=== PATIENT | female | born 2000 | race Two or more races ===

== ENCOUNTER 2024-03-29 09:49 | Emergency (ER) | payer MEDICAID, SELFPAY ==
[2024-03-29 09:51] VITALS: BMI 38.0
--- NOTE | 2024-03-29 09:57 | PD.EDNEURO ---
Neuro Symptoms Deficit-RME/HPI General Chief Complaint: General Adult/Misc Complain Stated Complaint: RIGHT SIDE FACIAL NUMBNESS X2 DAYS Time Seen by Provider: 03/29/24 09:53 Arrival date/time: 03/29/24 09:49 RME / HPI RME / HPI Narrative: This section includes all my notes and documentations, including HPI, PE, and ED course. Edwin Son MD HPI: 24-year-old female here with several days of right facial droop and numbness and tingling. No headache or dizziness. No speech or visual impairment. No loss of power in the arms or legs. No fever or chills. No chest pain or shortness of breath. No other complaints. ROS: All negative except as documented in HPI. Physical Exam: General: Alert and oriented. No acute distress. Eyes: Conjunctivae and lids clear. EOMI. PERRL. ENT: No nasal congestion. Pharynx normal. Tympanic membrane normal bilaterally. Neck: Supple. Heart: RRR. Lungs: No respiratory distress. Good air movement. No rhonchi, wheezing, rales. Skin: Warm and dry. Neuro: Alert and oriented X 3. Cranial Nerves II-XII grossly intact. No peripheral motor deficits. Except right facial paralysis, including the forehead muscles. Made clinical diagnosis of Ha's palsy. Recommended conservative treatment. Based on my best medical judgment, made decision no further evaluation or treatment indicated at this time. Patient understands and agrees to the discharge instructions customized and printed, see below. Discharge Instructions from Dr. Son: --After evaluation, there is no stroke.? You have Ha's palsy.? --Ha's palsy is Inflammation of the facial nerves one side which can cause paralysis and numbness/tingling and other symptoms.? --The cause of the nerve inflammation is not known.? Virus infection and stress are possibilities. --Take Prednisone and Valtrex as prescribed.? This can shorten the course. --See a private doctor on?04/02/2024 for recheck Ask to help until you are completely better. --And see manager sustainability to start your care. Based on your LMP 01/17/2024, today's gestational age 10 2/7 weeks. --Seek immediate medical care with speech impairment, loss of power in arms or legs, cramping, vaginal bleeding, or with any concerns.?? Edwin Son MD Related Data Previous Rx's ?Medication ?Instructions ?Recorded dicyclomine 20 mg tablet 20 mg PO Q8HR PRN Abdominal cramps 03/18/19 #10 tabs ondansetron 4 mg disintegrating 4 mg PO Q8H PRN nausea and 01/13/23 tablet vomiting #20 tabs albuterol sulfate 90 mcg/actuation 2 puff inhalation Q6H PRN 04/17/23 aerosol inhaler (Ventolin HFA) shortness of breath or wheezing #8.5 grams prednisone 20 mg tablet 40 mg PO 1XD 5 days #10 tabs 03/29/24 valacyclovir 1 gram tablet 1,000 mg PO BID 5 days #10 tabs 03/29/24 (Valtrex) Allergies Allergy/AdvReac Type Severity Reaction Status Date / Time No Known Drug Allergies Allergy Unknown Verified 04/19/21 22:05 Course Quality Measures none Vital Signs Vital signs: Vital Signs Temperature 98.2 F 03/29/24 10:01 Pulse Rate 86 03/29/24 10:01 Respiratory Rate 18 03/29/24 10:01 Blood Pressure 139/79 H 03/29/24 10:01 Pulse Oximetry (%) 98 03/29/24 10:01 Oxygen Delivery Method Room Air 03/29/24 10:01 Neuro Symptoms / Deficit Patient data External records reviewed:: [facility] previous records Clinical information provided by:: patient Social determinants that could affect healthcare access:: none Patient has the following chronic illnesses:: Asthma How is presenting disease/condition affected by chronic disease/condition?: uneffected by Evaluation data The following diagnostics were reviewed and interpreted by me:: other (specify) (No diagnostic tests ordered) Lab and/or radiology exams considered but not ordered:: None Interpretation Summary: No diagnostic tests ordered Medications / Prescriptions Medications or Prescriptions considered but not ordered:: None Medication administrations:: None Consultations Consultation(s) initiated? (list below): No Diagnosis Neuro Differential Diagnosis: other (Ha's palsy) Most likely diagnosis given after review of the tests above:: Ha's palsy Admission Indicated Admission indicated?: not indicated Explain why admission is indicated or not indicated:: Admission criteria not met Admission Request Was there a request for admission?: No Disposition Plan Disposition Plan: Discharge Discharge Attestation Discharge Attestation: The patient and all family members were given an opportunity to ask questions and understood the discharge instructions. Discharge instructions specifically effects, indications for sooner follow up or return to the emergency department, and the expected course of current diagnosis. Patient condition: Stable Discharge Plan Plan Patient Disposition: HOME (Self Care) Prescriptions/Referrals Prescriptions/Med Rec: New prednisone 20 mg tablet 40 mg PO 1XD 5 Days Qty: 10 0RF Taper: Prednisone Taper 20 mg DAILY for 2 Days and 0 Hour 10 mg DAILY for 2 Days and 0 Hour 5 mg DAILY for 7 Days and 0 Hour valacyclovir [Valtrex] 1 gram tablet 1,000 mg PO BID 5 Days Qty: 10 0RF No Action dicyclomine 20 mg tablet 20 mg PO Q8HR PRN (Reason: Abdominal cramps) Qty: 10 0RF ondansetron 4 mg tablet,disintegrating 4 mg PO Q8H PRN (Reason: nausea and vomiting) Qty: 20 0RF albuterol sulfate [Ventolin HFA] 90 mcg/actuation HFA aerosol inhaler 2 puff inhalation Q6H PRN (Reason: shortness of breath or wheezing) Qty: 8.5 3RF Problem List Clinical Impression: Ha's palsy Patient/Caregiver Discharge Instructions Discharge Activity: activity as tolerated Education Materials: ED Ha's Palsy Additional Instructions: Discharge Instructions from Dr. Son: --After evaluation, there is no stroke.? You have Ha's palsy.? --Ha's palsy is Inflammation of the facial nerves one side which can cause paralysis and numbness/tingling and other symptoms.? --The cause of the nerve inflammation is not known.? Virus infection and stress are possibilities. --Take Prednisone and Valtrex as prescribed.? This can shorten the course. --See a private doctor on?04/02/2024 for recheck Ask to help until you are completely better. --And see manager sustainability to start your care. Based on your LMP 01/17/2024, today's gestational age 10 2/7 weeks. --Seek immediate medical care with speech impairment, loss of power in arms or legs, cramping, vaginal bleeding, or with any concerns.?? Print Language: Divehi Stand Alone Forms: The [facility] Report., Patient Portal Info Letter
[2024-03-29 10:01] VITALS: BP 139/79; PULSE 86; RESP 18; TEMP 36.8; O2SAT 98
== END 2024-03-29 10:14 | disposition home or self-care (01) ==
LOC: SERX 10:20
PROVIDERS: Emergency Provider Emergency Medicine; PCP Nurse Practitioner Family
DX: G51.0 Bell's palsy (principal)
CPT/HCPCS: 99281

== ENCOUNTER → 2024-04-03 | Outpatient (CLI) | payer MEDICAID, SELFPAY ==
--- NOTE | 2024-04-03 12:00 | XR_ITS ---
Examination: Complete OB ultrasound, less than 14 weeks, transabdominal Date and time of exam: April 03, 2024 1201 hours INDICATIONS: Irregular menses Technique: Obstetrical ultrasound images less than 14 weeks performed via transabdominal imaging Findings: A normal shaped single intrauterine gestation is present in the uterus. pole 2 cm corresponds to 8 weeks 4 days gestational age Cardiac motion 182 BPM Ultrasonographic survey of visible and placental structures unremarkable. Amniotic fluid volume appears appropriate for this estimated gestational age. Right ovary 3.2 x 1.5 x 2.0 cm arterial flow Left ovary 5.0 x 2.8 x 4.7 cm arterial flow 35 x 35 mm simple cyst IMPRESSION: Viable intrauterine gestation 8 weeks 4 days.
== END | disposition home or self-care (01) ==
LOC: CDIM 11:48
PROVIDERS: Referring Provider Obstetrics & Gynecology; Visit Provider Obstetrics & Gynecology
DX: Z33.1 Pregnant state, incidental (principal)
CPT/HCPCS: 76801

== ENCOUNTER 2024-06-27 20:10 | Emergency (ER) | payer MEDICAID, SELFPAY ==
[2024-06-27 20:11] VITALS: BMI 42.5
[2024-06-27 21:01] VITALS: BP 121/81; PULSE 112; RESP 20; TEMP 37; O2SAT 99
--- NOTE | 2024-06-27 21:14 | PD.EDNV ---
Nausea/Vomit./Diarrhea-RME/HPI General Chief complaint: General Adult/Misc Complain Stated complaint: WEAK,DIZZY, N/V Arrival date/time: 06/27/24 20:10 24F at approximately 21 weeks and with no significant PMH presents to ED with several days of generalized weakness and 1 day of N/V. Patient denies dysuria and diarrhea. Related Data Previous Rx's ?Medication ?Instructions ?Recorded dicyclomine 20 mg tablet 20 mg PO Q8HR PRN Abdominal cramps 03/18/19 #10 tabs ondansetron 4 mg disintegrating 4 mg PO Q8H PRN nausea and 01/13/23 tablet vomiting #20 tabs albuterol sulfate 90 mcg/actuation 2 puff inhalation Q6H PRN 04/17/23 aerosol inhaler (Ventolin HFA) shortness of breath or wheezing #8.5 grams Allergies Allergy/AdvReac Type Severity Reaction Status Date / Time No Known Drug Allergies Allergy Unknown Verified 06/27/24 20:13 Course Orders Category Date Time Status CBC Stat Lab 06/27/24 21:14 Ordered CMP [Comprehensive Metabolic Panel] Stat Lab 06/27/24 21:14 Ordered Drug Screen,Urine Stat Lab 06/27/24 21:14 Ordered Urinalysis, C/S if Indicated Stat Lab 06/27/24 21:14 Ordered Metoclopramide [Reglan] Med 06/27/24 21:14 Once 10 mg PO X1 ONE Vital Signs Vital signs: Vital Signs Temperature 98.6 F 06/27/24 21:01 Pulse Rate 112 H 06/27/24 21:01 Respiratory Rate 20 06/27/24 21:01 Blood Pressure 121/81 06/27/24 21:01 Pulse Oximetry (%) 99 06/27/24 21:01 Oxygen Delivery Method Room Air 06/27/24 21:01 Nausea/Vomiting/Diarrhea Medications / Prescriptions Medication administrations:: Medication Administration History Metoclopramide HCl (Metoclopramide 5 Mg Tablet) 10 mg PO X1 ONE Stop: 06/27/24 21:15 Discharge Plan Prescriptions/Referrals Prescriptions/Med Rec: No Action dicyclomine 20 mg tablet 20 mg PO Q8HR PRN (Reason: Abdominal cramps) Qty: 10 0RF ondansetron 4 mg tablet,disintegrating 4 mg PO Q8H PRN (Reason: nausea and vomiting) Qty: 20 0RF albuterol sulfate [Ventolin HFA] 90 mcg/actuation HFA aerosol inhaler 2 puff inhalation Q6H PRN (Reason: shortness of breath or wheezing) Qty: 8.5 3RF Patient/Caregiver Discharge Instructions Print Language: Yoruba
--- NOTE | 2024-06-27 21:27 | PD.EDRME ---
Rapid Medical Screening Exam RME Arrival date/time: 06/27/24 20:10 24F at approximately 21 weeks and with no significant PMH presents to ED with several days of generalized weakness and 1 day of N/V. Patient denies dysuria and diarrhea. Chief Complaint: General Adult/Misc Complain Time Seen by Provider: 06/27/24 21:15 Vital signs: Vital Signs Temperature 98.6 F 06/27/24 21:01 Pulse Rate 112 H 06/27/24 21:01 Respiratory Rate 20 06/27/24 21:01 Blood Pressure 121/81 06/27/24 21:01 Pulse Oximetry (%) 99 06/27/24 21:01 Oxygen Delivery Method Room Air 06/27/24 21:01
--- NOTE | 2024-06-27 21:33 | PC.NURSE ---
CALLED PT TO GIVE MED, ALSO FOR LAB DRAW NO ANSWER AT ER LOBBY OR OUTSIDE ER.
--- NOTE | 2024-06-27 21:37 | PC.NURSE ---
PT NO ANSWER AT ER LOBBY OR OUTSIDE ER.
== END 2024-06-27 21:40 | disposition left against medical advice (07) ==
LOC: SERX 21:42
PROVIDERS: Emergency Provider Emergency Medicine
DX: O26.892 Other specified pregnancy related conditions, second trimester (principal); R53.1 Weakness; Z3A.21 21 weeks gestation of pregnancy; Z53.29 Procedure and treatment not carried out because of patient's decision for other reasons
CPT/HCPCS: 80053; 80307; 81001; 85025; 99281

== ENCOUNTER 2024-11-06 19:00 | Observation (INO) | payer MEDICAID, SELFPAY ==
[2024-11-06] VITALS (13 sets, daily range): BP systolic 130–138; BP diastolic 83–96; PULSE 118–130; RESP 16–99; O2SAT 98–100; BMI 42.0
== END 2024-11-06 20:30 | disposition home or self-care (01) ==
PROVIDERS: Admitting Provider Obstetrics & Gynecology; Visit Provider Obstetrics & Gynecology
DX: O26.893 Other specified pregnancy related conditions, third trimester (principal); Z3A.39 39 weeks gestation of pregnancy; R10.2 Pelvic and perineal pain; M54.9 Dorsalgia, unspecified
CPT/HCPCS: 59899

== ENCOUNTER 2024-11-06 22:42 | Inpatient (IN) | payer MEDICAID, SELFPAY ==
[2024-11-06 22:45] VITALS: BP 131/84; PULSE 117; RESP 18; RESP 99; TEMP 36.8; BMI 42.0
[2024-11-06 23:10] VITALS: PULSE 117; O2SAT 98
[2024-11-06 23:15] VITALS: PULSE 122; O2SAT 98
[2024-11-06 23:32] VITALS: BP 131/82; PULSE 121
[2024-11-06 23:44] VITALS: BMI 42.0
[2024-11-06 23:59] VITALS: PULSE 115; O2SAT 98
[2024-11-07] VITALS (58 sets, daily range): BP systolic 120–154; BP diastolic 58–91; PULSE 102–147; RESP 16–18; TEMP 36.6–37.6; O2SAT 95–100
[2024-11-07] MEDS: Ampicillin Inj 2,000 MG in SODIUM CHLORIDE 0.9% (POP) 100 ML 200 MG IV (00:05)
[2024-11-07] MEDS: fentaNYL CIT INJ 50 mCg/ML AMP 2ML 100 MCG IVP (00:06)
[2024-11-07] MEDS: RINGERS LACTATED 1000 ML 1,000 ML 100 ML IV (00:06)
[2024-11-07 00:13] LABS: Basophils # (Auto) 0.0 Thou/mm3 (0.0-0.2); Basophils % (Auto) 0 % (0-2.5); Eosinophils # (Auto) 0.0 Thou/mm3 (0.0-0.5); Eosinophils % (Auto) 0 % (0-10); Hematocrit 38.9 % (36.0-46.0); Hemoglobin 13.5 g/dL (12.0-16.0); Immature Granulocytes Auto 0.07 Thou/mm3 (0.00-0.00); Lymphocytes # (Auto) 1.6 Thou/mm3 (1.0-4.8); Lymphocytes % (Auto) 15 % (10-50); Mean Corpuscular HGB Conc 34.7 g/dl (31.0-37.0); Mean Corpuscular Hemoglobin 26.7 pg (25.0-35.0); Mean Corpuscular Volume 77 fL (80-100); Monocytes # (Auto) 0.6 Thou/mm3 (0.0-0.8); Monocytes % (Auto) 5 % (0-12); Neutrophils # (Auto) 8.4 Thou/mm3 (1.8-7.7); Neutrophils % (Auto) 79 % (37-80); Nucleated Red Blood Cell # 0.00 Thou/mm3 (0.00-0.00); Nucleated Red Blood Cell % 0 /100 WBC (0); Platelet Count 171 Thou/mm3 (140-440); RDW Standard Deviation 42.3 fL (36.4-46.3); Red Blood Count 5.06 Miln/mm3 (4.00-5.20); White Blood Count 10.6 Thou/mm3 (3.6-11.0)
--- NOTE | 2024-11-07 00:25 | XR_ITS ---
Examination: visualization limited TECHNIQUE: Limited transabdominal sonographic images pelvis Date and time: November 07, 2024, 0032 hours INDICATIONS: Patient in active labor, unknown presentation FINDINGS: Viable intrauterine gestation vertex presentation Cardiac motion 126 BPM Estimated weight 3887.5 g Estimated age 40 weeks 0 days IMPRESSION: Viable intrauterine gestation vertex presentation
[2024-11-07 00:49] LABS: Syphilis Nonreactive (Nonreactive)
--- NOTE | 2024-11-07 00:55 | PD.LDHP ---
Documentation for date of: 11/07/24 OB Labor/Induct. HPI History of Present Illness Chief complaint: contractions : 3 Para: 2 Term pregnancies: 1 pregnancies: 1 Living children: 2 History of Abortions: Spontaneous and Elective: 0 History of Vaginal deliveries: 2 History of sections: No History of : No PARI: 11/09/24 Gestational Age (weeks): 39 Gestational Age (days): 5 History of present illness: Patient presents for regular, painful ctx. She was seen earlier in the evening for similar- at that time was 3/-3 and discharged home. No LOF. No vaginal bleeding. Normal movement. No fevers/chills. History of Present Narrative: : term 2017 with PPH related to atony, received blood transfusion. Treated for Hep C during . G2: term uncomplicated 2018 G3: current, sees Dr. Joseph at [facility] (no pre-wade records available to review at time of admission) H&P from admission for 2nd delivery in 2019 by ASHLEE Baig notes that patient has hx of HSV 1 and 2 and was treated with acyclovir from 36wk on in that . Patient endorses today that she wasn't aware of that diagnosis until seeing records and was tested for HSV subsequent to that and tested negative. Endorses never having an HSV outbreak before. Labs Maternal Blood Type: B Pos Labs: Positive: Rubella Titre, Negative: RPR, Hepatitis B, HIV, Chlamydia and Gonorrhea and Unknown: Herpes Type 1, Herpes Type 2, Group Beta Strep and Covid-19 Review of Systems Review of Systems Narrative Review of Systems: Review of Systems Systems Reviewed: All systems reviewed, normal except as documented Constitutional Constitutional: Denies body ache(s), Denies chills, Denies fever(s) and Denies headache(s) ENT Ears, Nose, Mouth, and Throat: Denies headache(s) and Denies vertigo Cardiovascular Cardiovascular: Denies chest pain, Denies palpitations, Denies dyspnea and Denies syncope Respiratory Respiratory: Denies cough, Denies dyspnea Gastrointestinal Gastrointestinal: Denies nausea and Denies vomiting Neurologic Neurologic: Denies convulsions, Denies headache(s), Denies other visual disturbances, Denies syncope and Denies vertigo Past Medical History Family History OTHER FAMILY HX: Mother has Hepatitis C Surgical History SURGICAL: Negative Section Social History SOCIAL: No tobacco/ETOH/illicit drug use Past Medical History Comments PMH COMMENT: Chronic Hepatitis C Hx of blood transfusion for anemia after childbirth Meds Home Medications and Allergies Home Medications ?Medication ?Instructions ?Recorded ?Confirmed ?Type aspirin 81 mg tablet,delayed 81 mg PO QDAY 11/06/24 11/06/24 History release vit no.95-ferrous 1 tab PO QDAY 11/06/24 11/06/24 History fumarate 28 mg-folic acid 800 mcg tablet () Allergies Allergy/AdvReac Type Severity Reaction Status Date / Time No Known Drug Allergies Allergy Unknown Verified 11/06/24 23:05 OB Exam Physical Exam Vital signs: Pulse BP Pulse Ox 129 H 134/82 H 99 11/07/24 00:41 11/07/24 00:41 11/07/24 00:54 Narrative: General: well developed, well nourished, no acute distress, conversant Cardiac: normal heart rate Lungs: breathing without distress Abdomen: soft, gravid, non-tender, no rebound or guarding Extremities: trace edema BLE Detailed Labor and Delivery Exam Dilation (cm): 5 Effacement (%): 90 Cervix position: anterior station: -2 Presentation: Vertex Membranes: intact monitor accelerations: 15x15 monitor decelerations: None snf variability: Moderate (11-25) Contraction frequency (min): q1-2min OB Results Labs 11/06/24 23:49 Labs: Short CBC 11/06/24 Range/Units 23:49 WBC 10.6 (3.6-11.0) Thou/mm3 Hgb 13.5 (12.0-16.0) g/dL Hct 38.9 (36.0-46.0) % Plt Count 171 (140-440) Thou/mm3 OB Assessment & Plan Assessment and Plan (1) Spontaneous onset of labor: Status: Acute Assessment and plan: Jose Raul is a 24yo with SIUP at 39&5wk presenting in active labor. Regular/painful contractions, SCE: /-2. Vitals wnl, benign exam. Reassuring assessment. PMhx/ complicated by: Care with Dr. Lee at [facility] (no PN records available to review at time of admission) Hx of chronic Hepatitis C. Patient notes viral load tested approx 1 month ago and remains undetectable. Hx of PPH after 1st delivery with blood transfusion Previous documentation on the chart for +HSV 1 and 2, but patient states testing after that was negative. Denies hx of outbreak. Plan: -Admit to L&D -Establish IV, routine labs to include CMP for AST/ALT -CEFM -Clear liquid diet -Structures Mechanic/consent re: -GBS status: positive. Ampicillin per protocol. -Due to hx of Hepatitis C, will avoid FSE -Anticipate -Safe to proceed (2) Hx of hepatitis C: Status: Acute (3) History of hemorrhage, currently in third trimester: Status: Acute (4) History of maternal blood transfusion, currently in third trimester: Status: Acute
[2024-11-07] MEDS: MINERAL OIL 30 ML UDC TOP (01:34)
[2024-11-07] MEDS: OXYTOCIN in NS 20 units 20 UNIT/1,000 ML BAG 125 UNIT IV (01:35)
[2024-11-07] MEDS: IBUPROFEN TAB 400 MG TABLET 800 MG PO ×2 (01:35→20:26)
[2024-11-07] MEDS: BENZO/LANO/ALOE (Dermoplast) 60 GM CAN 1 SPRAY TOP (01:35)
--- NOTE | 2024-11-07 01:39 | PD.LDDELS ---
Data (Staley) Data Hx Section: No : 3 Term: 1 : 1 Livin Abortions: Spontaneous & Theraputic: 0 Delivery Data (Staley) Labor Data Initiation of labor: Spontaneous Induction/Augmentation Agent: None ROM date: 11/07/24 ROM time: 01:12 Amniotic membrane rupture type: Spontaneous Amniotic fluid description: Moderate Meconium Delivery Data Onset of labor date: 11/06/24 Onset of labor time: 20:30 Complete dilation date: 11/07/24 Complete dilation time: 01:12 delivery date: 11/07/24 delivery time: 01:17 Placenta delivery date: 11/07/24 Placenta delivery time: 01:21 Stage 1 total time: Labor - Stage 1 Duration 4 hours and 42 minutes Delivered by: Su Manuel Delivery nurse: MOR Rich nurse: JANAY Meter Reading Clerk at delivery: No Support person(s) at delivery: FOB AT BEDSIDE Delivery Method Delivery method: Normal Vaginal Delivery Presentation: Vertex Anesthesia Type Anesthesia Type: Epidural Placenta Placenta delivery description: Spontaneous Cord blood sent to lab: Yes cord blood collection: Cord Blood Type Episiotomy Episiotomy description: None EBL Estimated blood loss (ml): 500 Umbilical Cord cord description: 3 Vessels Additional Procedures Jose Raul is a 24yo [id number] s/p uncomplicated at 39&5wk after presenting in active labor, delivering at 0117 on 11/07/2024. On presentation, SCE was 5/90/-2. She progressed rapidly to 9cm and had SROM while sitting up for epidural. Right after that she was C/C/+2. With one set of pushes, 's head delivered OA and restituted IVORY. Left anterior shoulder delivered easily followed by posterior shoulder and corpus. Infant had spontaneous cry and was vigorous. Apgars 8/9. placed on maternal abdomen where nose/mouth were suctioned and dried/stimulated. After approximately 1 minute, cord was clamped x2 and cut by FOB. Cord blood collected for typing. Some brisk bleeding occurred prior to delivery of placenta (which was majority of EBL). With fundal massage and cord traction, placenta delivered spontaneously and intact with 3 vessel centrally inserted cord. Bimanual massage performed and IV pitocin given per protocol with fundus quickly firm to u-2cm and hemostasis noted. Inspection of perineum and vagina revealed no lacerations, just a couple superficial/hemostatic abrasions. Small trickle of blood, so sweep just within cervix/WINNIE performed which retrieved a small amount of clot. Fundus and lower uterine segment remained firm. Cytotec 800mcg SD placed for continued ppx against bleeding. All counts correct x2. Mom and were doing well when I left the room. Su Manuel MD Complications Complications: 500ml EBL, NO atony Data (Staley) [place] Data order: 1 [place]'s gender: Male Identification band number: [id number] weight (gms): 3960 g Weight (pounds): 8 lbs and 11.7 ozs 1 minute: 8 5 minutes: 9
[2024-11-07 02:03] LABS: Alanine Aminotransferase 31 U/L (10-49); Albumin, Serum 4.2 gm/dL (3.5-5.0); Albumin/Globulin Ratio 1.7 (1.2-2.2); Alkaline Phosphatase 473 U/L (46-116); Anion Gap 14 (7-16); Aspartate Amino Transferase 42 U/L (0-34); BUN/Creatinine Ratio 17 Ratio (12-20); Bilirubin,Total 0.7 mg/dL (0.3-1.2); Blood Urea Nitrogen 10 mg/dL (9-23); Calcium 9.9 mg/dL (8.3-10.6); Calcium (Corrected) 9.9 mg/dL (8.5-10.1); Carbon Dioxide 19.9 mMol/L (20.0-31.0); Chloride 105 mMol/L (98-107); Creatinine (Component) 0.6 mg/dL (0.6-1.3); Estimated Creatinine Clearance 169.9 mL/min (>60); Globulin 2.5 gm/dL (2.3-3.5); Glucose 85 mg/dL (74-106); Osmolality,Calculated 275 (275-295); Potassium 4.3 mMol/L (3.4-5.1); Sodium 139 mMol/L (136-145); Total Protein 6.7 gm/dL (5.7-8.2); eGFR > 60 See Note
--- NOTE | 2024-11-07 02:06 | PRELIM_ITS ---
Obstetric ultrasound with Doppler. November 07, 2024 0032 hours Clinical history: EFW, presentation. Comparison: None available at the time of this report. Findings: There is a gravid uterus with a live fetus in vertex presentation. cardiac activity is present at a heart rate of 126 beats per minute. Estimated weight is 3887 grams+/- 575 grams. No abnormalities detected by Doppler. Impression: Gravid uterus with a single live fetus in vertex presentation. Estimated weight is 3887 grams+/- 575 grams. Report Electronically Signed By: Jamel Lawson 11/07/2024 2:06:05 AM [EST]
[2024-11-07] MEDS: DOCUSATE SOD 100 MG CAPSULE PO ×2 (08:23→20:26)
[2024-11-07] MEDS: ACETAMINOPHEN 325 MG TABLET PO (08:24)
[2024-11-07 13:34] LABS: Basophils # (Auto) 0.0 Thou/mm3 (0.0-0.2); Basophils % (Auto) 0 % (0-2.5); Eosinophils # (Auto) 0.0 Thou/mm3 (0.0-0.5); Eosinophils % (Auto) 0 % (0-10); Hematocrit 31.0 % (36.0-46.0); Hemoglobin 10.3 g/dL (12.0-16.0); Immature Granulocytes Auto 0.14 Thou/mm3 (0.00-0.00); Lymphocytes # (Auto) 1.5 Thou/mm3 (1.0-4.8); Lymphocytes % (Auto) 11 % (10-50); Mean Corpuscular HGB Conc 33.2 g/dl (31.0-37.0); Mean Corpuscular Hemoglobin 26.8 pg (25.0-35.0); Mean Corpuscular Volume 81 fL (80-100); Monocytes # (Auto) 0.9 Thou/mm3 (0.0-0.8); Monocytes % (Auto) 7 % (0-12); Neutrophils # (Auto) 10.6 Thou/mm3 (1.8-7.7); Neutrophils % (Auto) 81 % (37-80); Nucleated Red Blood Cell # 0.00 Thou/mm3 (0.00-0.00); Nucleated Red Blood Cell % 0 /100 WBC (0); Platelet Count 178 Thou/mm3 (140-440); RDW Standard Deviation 44.5 fL (36.4-46.3); Red Blood Count 3.85 Miln/mm3 (4.00-5.20); White Blood Count 13.1 Thou/mm3 (3.6-11.0)
[2024-11-08 04:13] VITALS: BP 122/84; PULSE 102; RESP 16; TEMP 36.6; O2SAT 98
[2024-11-08 07:45] VITALS: BP 125/78; PULSE 108; RESP 17; TEMP 36.8; O2SAT 99
[2024-11-08] MEDS: ACETAMINOPHEN 325 MG TABLET 650 MG PO (08:35)
[2024-11-08] MEDS: DOCUSATE SOD 100 MG CAPSULE PO (08:35)
--- NOTE | 2024-11-08 12:40 | PD.LDPPPRG ---
Subjective Subjective Interval history: The patient is a 24-year-old G3 now P2-1-0-3 day #1 status post vaginal delivery by Dr. Manuel 11/07/2024 approximately 1:30 in the morning. Patient is resting comfortably in bed. She denies fevers chills. She denies heavy bleeding. Her pain is controlled with ibuprofen. She has a nagging headache but no signs of a spinal headache. She would like to be discharged home. Of note she was unknown strep had 1 dose of antibiotics and then pre school manager has said the baby can be discharged. 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 care with Dr. Lee Exam Vital Signs Temp Pulse Resp BP Pulse Ox O2 Del Method 98.2 F 108 H 17 125/78 99 Room Air 11/08/24 07:45 11/08/24 07:45 11/08/24 07:45 11/08/24 07:45 11/08/24 07:45 11/08/24 07:45 Narrative Exam Fundus firm extremities show no significant edema or erythema Objective Labs 11/07/24 13:08 11/07/24 00:00 Labs: Laboratory Results - last 24 hr 11/07/24 13:08 WBC 13.1 H RBC 3.85 L Hgb 10.3 L D Hct 31.0 L MCV 81 MCH 26.8 MCHC 33.2 RDW Std Deviation 44.5 Plt Count 178 Neut % (Auto) 81 H Lymph % (Auto) 11 [place] % (Auto) 7 Eos % (Auto) 0 Baso % (Auto) 0 Neut # (Auto) 10.6 H Lymph # (Auto) 1.5 [place] # (Auto) 0.9 H Eos # (Auto) 0.0 Baso # (Auto) 0.0 Immature Gran # (Auto) 0.14 H Absolute Nucleated RBC 0.00 Immature Gran % 1 H Nucleated RBC % 0 Assessment & Plan Problem List (1) Hx of hepatitis C: Problem details: 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 She has been treated in the past. Status: Acute (2) Term delivered: Problem details: Discharge instructions given including pelvic rest x 6 weeks. Follow-up with Dr. Lee for care in 2 to 4 weeks. Status: Acute Time Spent With Patient Time: Total time spent is greater than 50% in coordination of care (as documented) at patient's floor/unit and/or counseling patient: Time with patient: less than 15 minutes
--- NOTE | 2024-11-08 12:45 | PD.LDDS ---
DS: Providers Provider Date of admission: 11/06/24 23:42 Primary care physician: Physician No Primary/Family Admitting Provider: Su Manuel MD Attending Provider on Admission: Su Manuel MD Consults: 11/07/24 01:35 Referral Routine Comment: Attending Provider on DC: Ina [facility] ([facility]) Discharging Provider: Ina Barrett MD ([facility]) Anticipated date of discharge: 11/08/24 DS: Diagnosis Discharge Diagnosis (1) Term delivered: Status: Acute Assessment & Plan: Patient has an uncomplicated course and be discharged home day #1 in stable condition (2) care following vaginal delivery: Status: Acute (3) Hx of hepatitis C: Status: Acute Assessment & Plan: Patient has been treated in the past. She has a manager of project management. Problem List Completed Was Problem List Reviewed/Reconciled?: Yes Summary/Hosp Course Brief History: The patient is a 24-year-old -1-0-2 at 39-5/[address] Manuel 11/06/2024 in active labor. Patient presented for regular, painful ctx. She was seen earlier in the evening for similar- at that time was 350/-3 and discharged home. No LOF. No vaginal bleeding. Normal movement. No fevers/chills. When she again presented to the hospital she was 5 cm dilated. Please see history and physical for further details. She rapidly progressed to complete and did not push long delivering 11/07/2024 at 1:30 in the morning by Dr. Manuel. Please see delivery notes for further details. The patient had an uncomplicated course. No heavy bleeding. No fevers chills. Her pain was controlled with ibuprofen. She was discharged home day #1 in stable condition. Peripartum Data Delivery Method: Normal Vaginal Delivery Episiotomy Description: None Laceration Description: see Delivery Summary complications: none Status at Discharge Cognitive/behavioral status at discharge: Alert and oriented x 3 in no apparent distress Functional status at discharge: independent ambulation Overall status at discharge: patient is progressing back to baseline Time Spent with Patient Time attestation: Total time spent providing and/or coordinating discharge services: Time spent: Less than 30 minutes Exam Vital Signs Temp Pulse Resp BP Pulse Ox O2 Del Method 98.2 F 108 H 17 125/78 99 Room Air 11/08/24 07:45 11/08/24 07:45 11/08/24 07:45 11/08/24 07:45 11/08/24 07:45 11/08/24 07:45 Narrative Exam Patient is resting comfortably and alert and oriented x 3 in no apparent distress. Fundus is firm. Nontender. Extremities show no significant edema or erythema. Discharge Plan Plan Patient Disposition: HOME (Self Care) Disposition Comment: Stable Patient condition on transfer: Stable Prescriptions/Referrals Prescriptions/Med Rec: New docusate sodium 100 mg Capsule 100 mg PO BID 10 Days Qty: 20 0RF ibuprofen 800 mg tablet 800 mg PO Q8H PRN (Reason: See Comments) 10 Days Qty: 20 0RF Continued PNV no.95-ferrous fumarate-FA [] 28 mg iron- 800 mcg tablet 1 tab PO QDAY Patient Comments: TOME 1 TABLETA POR V A ORAL TODOS LOS D Discontinued aspirin 81 mg tablet,delayed release (/EC) 81 mg PO QDAY Patient Comments: TAKE 2 TABLETS BY MOUTH EVERY DAY Referrals: No Primary/Family,Physician [Primary Care Provider] - Patient/Caregiver Discharge Instructions Discharge Activity: activity as tolerated and other Other Discharge Activity Instructions:: vaginal rest and no heavy lifting more than 10 pounds for 6 weeks follow-up with Dr. Lee in 2 to 4 weeks Other Discharge Diet Instructions: regular diet Education Materials: After a Vaginal Print Language: Mongolian Activity Restrictions/Additional Instructions: follow up with Dr. Lee in 2-4 weeks for visit, call clinic for appointment Stand Alone Forms: Kimberley Award Info., Patient Portal Info Letter Discharge Order Discharge Orders: Discharge (Routine); Ordered 11/08/24 Ordered By: Ina Barrett ([facility]) Planned Discharge Date 11/08/24
--- NOTE | 2024-11-08 13:03 | PC.NURSE ---
Cleared by Elinor from child protective services social worker at 10:10am
[2024-11-08 13:25] VITALS: BP 123/86; PULSE 130; RESP 20; TEMP 36.8; O2SAT 99
--- NOTE | 2024-11-08 13:30 | PC.SS ---
SS received referral due to patient scoring high (10) on the Depression scale. SS met with patient at bedside, role and purpose of today?s contact was explained to patient. She confirmed her demographic information. Patient stated PRITI Terrazas [phone] is her primary medical surrogate decisionmaker. Patient explained her support system consists of FOB. She reports having all necessities to meet ?s needs such as clothing, wipes, diapers, clothing, and carseat for transportation. At the time of discharge, PRITI Tinajero will be providing transportation. Patient is connected to [employer], [employer], and [employer]. Patient will be resuming classes at [facility] in November 2024.? Patient reports also participating in [employer] and [employer]. Patient denied history of substance use, toxicology reports were negative. Patient denies history of CWS involvement and denies exposure to domestic violence. Patient confirmed scoring high on PPD scale. She explained she has been feeling overwhelmed at home with her family and her was difficult. Patient stated she feels better now and denies SI, HI. SS provided information regarding mental health services and offered linkage to a mental health provider. Patient was agreeable. A community resource document was provided at bedside. The mental health services section and contacts was explained to patient. Referral to [facility] submitted. MAXX Rowe informed, no additional concerns provided.
[2024-11-08] MEDS: IBUPROFEN TAB 400 MG TABLET 800 MG PO (13:36)
[2024-11-08 13:41] VITALS: BP 123/86; BP 133/81; BP 134/84; PULSE 129; PULSE 130; PULSE 132; RESP 18; RESP 20; TEMP 36.8; TEMP 36.9; TEMP 37.2; O2SAT 100; O2SAT 99
[2024-11-08 14:26] LABS: Basophils # (Auto) 0.0 Thou/mm3 (0.0-0.2); Basophils % (Auto) 0 % (0-2.5); Eosinophils # (Auto) 0.1 Thou/mm3 (0.0-0.5); Eosinophils % (Auto) 1 % (0-10); Hematocrit 25.4 % (36.0-46.0); Immature Granulocytes Auto 0.14 Thou/mm3 (0.00-0.00); Lymphocytes # (Auto) 1.2 Thou/mm3 (1.0-4.8); Lymphocytes % (Auto) 15 % (10-50); Mean Corpuscular HGB Conc 33.9 g/dl (31.0-37.0); Mean Corpuscular Hemoglobin 27.1 pg (25.0-35.0); Mean Corpuscular Volume 80 fL (80-100); Monocytes # (Auto) 0.4 Thou/mm3 (0.0-0.8); Monocytes % (Auto) 5 % (0-12); Neutrophils # (Auto) 5.8 Thou/mm3 (1.8-7.7); Neutrophils % (Auto) 76 % (37-80); Nucleated Red Blood Cell # 0.00 Thou/mm3 (0.00-0.00); Nucleated Red Blood Cell % 0 /100 WBC (0); Platelet Count 149 Thou/mm3 (140-440); RDW Standard Deviation 45.8 fL (36.4-46.3); Red Blood Count 3.17 Miln/mm3 (4.00-5.20); White Blood Count 7.6 Thou/mm3 (3.6-11.0)
[2024-11-08 14:36] LABS: Hemoglobin 8.6 g/dL (12.0-16.0)
[2024-11-08] MEDS: DIPHTH,PERTUSS(ACELL),TET VAC 0.5 ML SYR- ADULT IMi (14:48)
[2024-11-08 16:00] VITALS: BP 127/85; PULSE 110; RESP 18; TEMP 36.7; O2SAT 99
[2024-11-08 17:34] VITALS: BP 103/64; PULSE 95; RESP 16; O2SAT 98
--- NOTE | 2024-11-08 18:35 | EVENTNT_ITS ---
Documentation for date of: 11/08/24 Event Note Event Note: Earlier this afternoon at approximately 1:00 patient had a headache and her pulse went up to 130. I was called to bedside to evaluate the patient. I did order a repeat CBC and had patient drink a lot of oral fluids as her IV was already discharged. The patient was given oral ibuprofen. She took a nap and I rounded on her again about 6:00 PM and she is resting comfortably in bed breast- feeding her baby. Her pulse is in the 90s. Her hemoglobin was 8.5. Patient is comfortable with going home. She has no signs of any spinal headache. Her blood pressure is stable. She will be discharged home at this time.
== END 2024-11-08 18:51 | disposition home or self-care (01) | DRG 560 ==
LOC: S4SX 11-07 01:12 → S4NX 11-07 03:33
PROVIDERS: Obstetrics & Gynecology; Admitting Provider Obstetrics & Gynecology; Visit Provider Obstetrics & Gynecology
DX: O99.824 Streptococcus B carrier state complicating childbirth (principal); Z37.0 Single live birth; Z3A.39 39 weeks gestation of pregnancy; O77.0 Labor and delivery complicated by meconium in amniotic fluid
CPT/HCPCS: 36415; 59025; 76815; 80053; 85025; 86780; 86850; 86900; 86901; 86923; 90715; J0290; J2590; J2795; J3010; J7120; S0191; A9270

== ENCOUNTER 2025-02-11 10:50 | Outpatient (AMB) | payer MEDICAID, SELFPAY ==
[2025-02-11 11:37] VITALS: BP 127/83; PULSE 91; RESP 18; TEMP 36.4; O2SAT 98; BMI 38.2
--- NOTE | 2025-02-11 11:37 | GYNCLNT_ITS ---
Vital Signs 02/11/25 11:37 Height 1.6 m Height Method Stated Weight 97.976 kg Weight Measurement Method Standing Scale BMI 38.2 BP 127/83 Blood Pressure Source Automatic Cuff Blood Pressure Location Left Upper Arm Position Sitting Respiration 18 Pulse 91 Pulse Source Monitor Temp 97.5 F Temp Source Oral Pulse Oximetry (%) 98 Oxygen Delivery Method Room Air Allergies/Home Meds Allergies & Medications Allergies No Known Drug Allergies Allergy (Unknown, Verified 02/11/25 11:38) Medication Reconciliation vit no.95-ferrous fumarate 28 mg-folic acid 800 mcg tablet () 1 tab PO QDAY 11/06/24 [History Confirmed 02/11/25] Intake Visit Data Collection New Patient or Established: Established Patient (seen at [facility] within 3 years) Reason for Visit:: TUBAL LIGATION CONSULT Seen by Clinical Staff ONLY (RN/MA): No Air Transport Professionals Required: No Do You Feel Safe at Home: Yes Authorities Contacted: N/A PCP or OBGYN visit in last 3 months: Yes Hx Now: No Are you currently on any form of Control: Yes Last menstrual period: 01/20/25 Pain Present Currently: No Pain Scale Used: Kenny-Lugo/Numerical Pain scale:: 0 Smoking Status Smoking Status: Never smoker Immunizations Flu Vaccine in the Last 12 Months: No Flu Vaccine Exclusion Criteria: Refused by Patient Hog Handler history Hog Handler History Menstrual regularity: irregular Flow: normal Monthly: No How many days does period last: 5 Age at menarche: 13 Currently sexually active: Yes KEY OPERATOR: Past Medical History Past Medical History: No Hx Neurological Disorders, No Hx Breast Cancer, No Hx Cardiac Disorders, No Hx Cancer, No Hx Blood Disorders, No Hx Gastrointestinal Disorders, No Hx Renal Disease, No Hx Diabetes Mellitus Type 1 and No Hx Diabetes Mellitus Type 2 Questionnaires Covid-19 Vaccine Questionnaire Has patient been vacinated for Covid-19 Have you been vacinated for Covid-19: Yes PHQ-9 PHQ-2 Over the last 2 weeks, how often have you been bothered by any of the following problems? 1. Little interest or pleasure in doing things: not at all 2. Feeling down, depressed, or hopeless: not at all Total score: 0 PHQ-9 3. Trouble falling or staying asleep, or sleeping too much: Not at all 4. Feeling tired or having little energy: Not at all 5. Poor appetite or overeating: Not at all 6. Feeling bad about yourself - or that you are a failure or have let yourself or your family down: Not at all 7. Trouble concentrating on things, such as reading the newspaper or watching te levision: Not at all 8. Moving or speaking so slowly that other people could have noticed? - Or the opposite - being so fidgety or restless that you have been moving around a lot more than usual: not at all 9. Thoughts that you would be better off or of hurting yourself in some way: Not at all Total score: 0 Source: Developed by Drs. Lv Hunter, Maribel Adame, Demetrio Spicer and colleagues, with an educational mike from [employer]. Depression screen completed yes Social History Living Situation History Housing: House Tobacco History Smoking Status: Never smoker Alcohol History Alcohol Intake: Never Alcohol Intake Frequency: holidays/special occasions only Domestic Abuse History Do You Feel Safe at Home: Yes History of Present Illness HPI Narrative Chief Complaint Consultation for bilateral tubal ligation, states I don't want any more babies Jose Raul Bailey is a 25-year-old woman presenting for consultation regarding bilateral tubal ligation. The patient states she does not want any more babies and is seeking permanent sterilization. She acknowledges understanding that the procedure is permanent and irreversible, though she has not researched the specific details of the procedure. The patient is currently using Depo-Provera contraceptive injection for control, which she reports is effective until March 20. She states this is her first time using the shot and expresses reluctance to continue this method of contraception. She has three children: an 8-year-old son, a 6-year-old daughter, and a 3-month-old son. Her most recent delivery was three months ago, though she does not recall the name of the delivering physician. Her previous deliveries were attended by Dr. Lona Baig for her daughter and Dr. De La Rosa for her older son. The patient does not work outside the home and reports taking care of multiple children. She has not experienced any complications or concerns related to her current contraceptive method or recent delivery that would impact her decision for permanent sterilization. Obstetric History: - GPAL: A0 L3 - Most recent delivery 3 months ago of a male - Second delivered by Dr. De La Rosa, resulted in male now turning 8 next month - First delivered by Dr. Lona Baig, resulted in female infant now turning 6 next month Medications: - Depo-Provera shot Social History: - Does not work outside the home, stays home to care for children - Lives with three children - Mother of three children - Denies tobacco, alcohol, or illicit drug use Exam General General Appearance: alert, in no apparent distress and healthy appearing Head Head exam: atraumatic Neck Neck exam: Present normal inspection and trachea midline Chest Chest inspection: Present normal inspection and symmetric chest wall rise External exam: Present normal external exam; Absent tenderness Neuro Neurological exam: Present oriented X3 Psych Psychiatric exam: Present normal affect and normal mood Office Procedures [facility] LOC & Office Proc's Nursing/Assessment Patient Status: Established Patient [facility] Nursing Assessment: Medication Reconciliation, Update PMH in EMR and Vital Signs [facility] Clinic Coordination of Care: Complex Care and Chronic Disease 1-5, Consent,records obtained, informed consent, Education Simp Pt/Fam, 1 Ins Authorization, Lab and Imaging orders, Results/Orders obtained and Staff clarify orders Established Patient Charge Established Patient Point Assignment: 120 Established Patient Point Charge: EP Level 4 (120-155) Assessment & Plan Diagnosis / Problem List (1) Encounter for sterilization: Status: Acute Plan Desire for permanent sterilization Assessment: Patient is requesting bilateral tubal ligation for permanent contraception. She has completed her desired family size with three children (ag es 8 years, 6 years, and 3 months) and does not want any more pregnancies. She is currently using Depo-Provera injection for contraception, which is effective until March 20, but prefers not to continue this method. Patient acknowledges understanding that tubal ligation is permanent and irreversible, with reversal success rates of only approximately 20%. Plan: - Provide consent form for bilateral tubal ligation as required by state law - Mandatory 30-day waiting period from consent signing to procedure scheduling - Obtain insurance approval during waiting period - Schedule laparoscopic bilateral tubal ligation after 30-day waiting period expires - Procedure will be performed as same-day outpatient surgery with laparoscopic approach involving camera through umbilicus and two small incisions for fallopian tube transection and cauterization - Informed consent provided: procedure is permanent and irreversible, no hormonal changes or menstrual cycle effects expected, sterilization is im mediately effective post-procedure - Post-operative instructions: same-day discharge after 3-hour hospital stay, return to normal activities after 2 days, return to work after 72 hours - Short-term contraception options discussed (condoms) if needed between current Depo-Provera expiration and surgery date
== END 2025-02-11 11:59 | disposition home or self-care (01) ==
LOC: HODSOBC 10:50
PROVIDERS: PCP Nurse Practitioner Family; Referring Provider Nurse Practitioner Family; Supervising Provider Obstetrics & Gynecology; Visit Provider Obstetrics & Gynecology
DX: Z30.2 Encounter for sterilization (principal)
CPT/HCPCS: 99214; G0463

== ENCOUNTER 2025-03-20 10:13 | Outpatient (AMB) | payer MEDICAID, SELFPAY ==
[2025-03-20 10:27] VITALS: BP 120/83; PULSE 90; RESP 18; TEMP 36.6; O2SAT 98; BMI 36.8
--- NOTE | 2025-03-20 10:27 | AMB.GYNCLNOT ---
Vital Signs 03/20/25 10:27 Height 1.65 m Height Method Stated Weight 100.414 kg Weight Measurement Method Standing Scale BMI 36.8 BP 120/83 Blood Pressure Source Automatic Cuff Blood Pressure Location Left Upper Arm Position Sitting Respiration 18 Pulse 90 Pulse Source Monitor Temp 97.8 F Temp Source Oral Pulse Oximetry (%) 98 Oxygen Delivery Method Room Air Allergies/Home Meds Allergies & Medications Allergies No Known Drug Allergies Allergy (Unknown, Verified 03/20/25 10:28) Medication Reconciliation No Known Home Medications 03/20/25 [History Confirmed 03/20/25] Intake Visit Data Collection New Patient or Established: Established Patient (seen at [facility] within 3 years) Reason for Visit:: PRE OP Seen by Clinical Staff ONLY (RN/MA): No Piling Cutter Required: No Do You Feel Safe at Home: Yes Authorities Contacted: N/A PCP or OBGYN visit in last 3 months: Yes Hx Now: No Are you currently on any form of Control: No Last menstrual period: 01/20/25 Pain Present Currently: No Pain Scale Used: Kenny-Lugo/Numerical Pain scale:: 0 Smoking Status Smoking Status: Never smoker Immunizations Flu Vaccine in the Last 12 Months: Yes Flu Vaccine Exclusion Criteria: Already Received Home Health Care Physician history Home Health Care Physician History Menstrual regularity: irregular Flow: heavy Monthly: No How many days does period last: 7 Age at menarche: 13 Currently sexually active: Yes REIMBURSEMENT ANALYST: Past Medical History Past Medical History: No Hx Neurological Disorders, No Hx Breast Cancer, No Hx Cardiac Disorders, No Hx Cancer, Yes Hx Blood Disorders, Yes Hx Anemia, No Hx Gastrointestinal Disorders, No Hx Renal Disease, No Hx Diabetes Mellitus Type 1 and No Hx Diabetes Mellitus Type 2 Questionnaires Covid-19 Vaccine Questionnaire Has patient been vacinated for Covid-19 Have you been vacinated for Covid-19: Yes PHQ-9 PHQ-2 Over the last 2 weeks, how often have you been bothered by any of the following problems? 1. Little interest or pleasure in doing things: not at all 2. Feeling down, depressed, or hopeless: not at all Total score: 0 PHQ-9 3. Trouble falling or staying asleep, or sleeping too much: Not at all 4. Feeling tired or having little energy: Not at all 5. Poor appetite or overeating: Not at all 6. Feeling bad about yourself - or that you are a failure or have let yourself or your family down: Not at all 7. Trouble concentrating on things, such as reading the newspaper or watching television: Not at all 8. Moving or speaking so slowly that other people could have noticed? - Or the opposite - being so fidgety or restless that you have been moving around a lot more than usual: not at all 9. Thoughts that you would be better off or of hurting yourself in some way: Not at all Total score: 0 Source: Developed by Drs. Lv Hunter, Maribel Adame, Demetrio Spicer and colleagues, with an educational mike from [employer]. Depression screen completed yes Social History Living Situation History Housing: House Tobacco History Smoking Status: Never smoker Second Hand Smoke Exposure: No Alcohol History Alcohol Intake: Current Alcohol Intake Frequency: holidays/special occasions only Domestic Abuse History Do You Feel Safe at Home: Yes History of Present Illness HPI Narrative Jose Raul Bailey presents for preoperative counseling prior to scheduled laparoscopic bilateral salpingectomy for permanent sterilization. She reports a history of irregular periods, which she notes have been ongoing but does not specify onset or duration. She describes a previous experience with Depo-Provera that caused her to bleed for a whole month. The patient expresses understanding that the planned surgical sterilization will be permanent and irreversible, and that while her periods and hormones will remain unchanged, she will no longer be able to become . The patient has been taking Depo-Provera, which caused bleeding for a whole month. She lives with her mother who can be contacted during recovery. ROS: Genitourinary: Positive for irregular periods. Exam General General Appearance: alert, in no apparent distress and healthy appearing Head Head exam: atraumatic Neck Neck exam: Present normal inspection and trachea midline Chest Chest inspection: Present normal inspection and symmetric chest wall rise External exam: Present normal external exam; Absent tenderness Neuro Neurological exam: Present oriented X3 Psych Psychiatric exam: Present normal affect and normal mood Office Procedures [facility] LOC & Office Proc's Nursing/Assessment Patient Status: Established Patient [facility] Nursing Assessment: Medication Reconciliation, Update PMH in EMR and Vital Signs [facility] Clinic Coordination of Care: Complex Care and Chronic Disease 1-5, Consent,records obtained, informed consent, Education Simp Pt/Fam, 1 Ins Authorization, Lab and Imaging orders, Results/Orders obtained and Staff clarify orders Established Patient Charge Established Patient Point Assignment: 120 Established Patient Point Charge: Level 4 (120-155) Assessment & Plan Diagnosis / Problem List (1) Encounter for sterilization: Status: Acute Plan Scheduled laparoscopic bilateral salpingectomy: - Patient scheduled for permanent sterilization via laparoscopic bilateral salpingectomy. - Procedure involves removal of fallopian tubes while preserving uterus and ovaries. - Patient understands the permanent and irreversible nature of the procedure. - Menstrual cycles and hormones will remain unchanged post-operatively. Plan: - Laparoscopic bilateral salpingectomy scheduled for 7:30 AM tomorrow. - Check-in time: 5:45 AM. - Procedure duration approximately 20 minutes with one-hour recovery. - Expected discharge by 9:30 AM. - Post-operative medications: pain medicine, nausea medicine, and stool softener. - Recovery period 48-72 hours. - No sexual activity for one week post-operatively. - Contact patient's mother during recovery period. - Post-operative follow-up visit scheduled. Irregular menstrual periods: - Patient reports irregular periods with history of prolonged bleeding for one month following Depo-Provera use. - Irregular periods noted to be significant primarily when attempting conception. Plan: - Discuss irregular periods further at post-operative visit. - Consider hormone laboratory studies after surgery.
== END 2025-03-20 10:36 | disposition home or self-care (01) ==
LOC: HODSOBC 10:13
PROVIDERS: Supervising Provider Obstetrics & Gynecology; Visit Provider Obstetrics & Gynecology
DX: Z30.2 Encounter for sterilization (principal); N92.6 Irregular menstruation, unspecified
CPT/HCPCS: 99214; G0463

== ENCOUNTER 2025-03-21 05:40 | Day surgery (SDC) | payer MEDICAID, SELFPAY ==
[2025-03-20 09:35] VITALS: BMI 39.6
[2025-03-20 10:15] LABS: Basophils # (Auto) 0.0 Thou/mm3 (0.0-0.2); Basophils % (Auto) 1 % (0-2.5); Eosinophils # (Auto) 0.1 Thou/mm3 (0.0-0.5); Eosinophils % (Auto) 2 % (0-10); Hematocrit 39.9 % (36.0-46.0); Hemoglobin 13.1 g/dL (12.0-16.0); Immature Granulocytes Auto 0.08 Thou/mm3 (0.00-0.00); Lymphocytes # (Auto) 1.7 Thou/mm3 (1.0-4.8); Lymphocytes % (Auto) 28 % (10-50); Mean Corpuscular HGB Conc 32.8 g/dl (31.0-37.0); Mean Corpuscular Hemoglobin 24.6 pg (25.0-35.0); Mean Corpuscular Volume 75 fL (80-100); Monocytes # (Auto) 0.4 Thou/mm3 (0.0-0.8); Monocytes % (Auto) 6 % (0-12); Neutrophils # (Auto) 3.7 Thou/mm3 (1.8-7.7); Neutrophils % (Auto) 62 % (37-80); Nucleated Red Blood Cell # 0.00 Thou/mm3 (0.00-0.00); Nucleated Red Blood Cell % 0 /100 WBC (0); Platelet Count 197 Thou/mm3 (140-440); RDW Standard Deviation 40.4 fL (36.4-46.3); Red Blood Count 5.32 Miln/mm3 (4.00-5.20); White Blood Count 6.0 Thou/mm3 (3.6-11.0)
[2025-03-20 10:32] LABS: Alanine Aminotransferase 58 U/L (10-49); Albumin, Serum 4.9 gm/dL (3.5-5.0); Albumin/Globulin Ratio 1.7 (1.2-2.2); Alkaline Phosphatase 131 U/L (46-116); Anion Gap 9 (7-16); Aspartate Amino Transferase 36 U/L (0-34); BUN/Creatinine Ratio 14 Ratio (12-20); Bilirubin,Total 0.7 mg/dL (0.3-1.2); Blood Urea Nitrogen 10 mg/dL (9-23); Calcium 9.8 mg/dL (8.3-10.6); Calcium (Corrected) 9.8 mg/dL (8.5-10.1); Carbon Dioxide 26.4 mMol/L (20.0-31.0); Chloride 106 mMol/L (98-107); Creatinine (Component) 0.7 mg/dL (0.6-1.3); Estimated Creatinine Clearance 139.7 mL/min (>60); Globulin 2.9 gm/dL (2.3-3.5); Glucose 103 mg/dL (74-106); Osmolality,Calculated 280 (275-295); Potassium 4.1 mMol/L (3.4-5.1); Sodium 141 mMol/L (136-145); Total Protein 7.8 gm/dL (5.7-8.2); eGFR > 60 See Note
[2025-03-20 10:36] LABS: HCG,Qualitative Serum Negative
[2025-03-21 06:00] VITALS: BP 137/76; PULSE 107; RESP 20; TEMP 36.2; O2SAT 98; BMI 39.2
[2025-03-21 08:22] VITALS: BP 128/54; PULSE 117; RESP 19; TEMP 36.9; O2SAT 100
--- NOTE | 2025-03-21 08:22 | SUR.PHASEI ---
0822 Patient arrived to recovery resting comfortably in [facility], drowsy and able to arouse with verbal prompting, on oxygen 8L via oxy mask, breathing unlabored, vital signs stable with the exception on heart rate which is elevated, anesthesia provider aware, no new order at this time, will continue to monitor, denies pain, dressing intact to abdomen; dermabond, to vaginal area; peripad, no bleeding noted, report received from Dr. Wild and Sunitha LILLY
[2025-03-21 08:27] VITALS: BP 132/42; PULSE 120; RESP 17; O2SAT 100
[2025-03-21 08:32] VITALS: BP 111/67; PULSE 107; RESP 20; O2SAT 100
[2025-03-21 08:37] VITALS: BP 126/62; PULSE 111; RESP 20; O2SAT 97
--- NOTE | 2025-03-21 09:12 | SUR.PHASEII ---
0912 Patient meets discharge criteria from recovery, awake and alert, breathing unlabored, vital signs stable, denies pain and nausea, dressing intact; no bleeding noted, able to dress herself into her clothing, discharge instructions given to patient and patient mother, mother signed discharge instructions. Patient given all her belongings prior to discharge, transported via wheelchair and left in a private vehicle.
--- NOTE | 2025-03-21 09:13 | ESOP_ITS ---
Operative Note - SAND CONDITIONER Procedure Date of procedure: 03/21/25 Procedure Performed: Laparoscopic salpingectomy for bilateral surgical sterilization Indication: Patient desired surgical sterilization Anesthesia type: General Procedure description: Informed consent was obtained patient was taken to the operating room.? Identity was confirmed by double identifiers and she was placed on the operating table.? General anesthesia was administered and airway was secured.? Patient was now positioned in the dorsal lithotomy position in Ap stirrups.? The abdomen and perineum were prepped in the usual sterile fashion and sterile drapes were applied.? The bladder was emptied using a straight catheter.? A sponge stick was placed in the vagina for uterine manipulation.? Attention was now turned to the patient's abdomen.? A 5 mm incision was made at the base of the umbilicus using a scalpel.? Laparoscopic entry was accomplished under direct visualization using [employer] laparoscopic trocar.? Once intra-abdominal placement was confirmed pneumoperitoneum was insufflated to 15 cm.? The camera was now introduced into the abdomen and a preliminary survey was performed.? The uterus and both adnexa were noted to be within normal limits except for paratubal cyst at the fimbriated end of the left fallopian tube. Another overall survey of the upper abdomen was performed and no gross abnormalities were noted.? A pair of accessory ports were placed 2 cm superior and medial to the ASIS bilaterally.? The Enseal was used to perform a salpingectomy in the usual fashion. The dissection sites were now observed to note satisfactory hemostasis.? All instruments were now withdrawn.? Pneumoperitoneum was desufflated.? The laparoscopic ports were removed.? The skin was now closed using 4-0 Monocryl in a subcuticular fashion.? The patient's skin was now cleaned, sterile dressings were applied.? Patient was undraped, and general anesthesia was reversed and she was transferred to the recovery room in a stable and awake condition. The patient tolerated the entire procedure well.? All instrument, sponge and lap counts are correct x2.? No complications were encountered. Specimen: left tube and right tube Estimated blood loss (ml): 10 Complications: none Surgical staff Operation Date: 03/21/25 07:30 Case Staff Anesthesiologist: Kody Wild RN First Assistant: Mayra Mckeon Diagnosis Discharge Diagnosis (1) Encounter for sterilization: Status: Acute Problem List Completed Was Problem List Reviewed/Reconciled?: Yes
== END 2025-03-21 09:12 | disposition home or self-care (01) ==
PROVIDERS: PCP Family Medicine; Referring Provider Obstetrics & Gynecology; Visit Provider Obstetrics & Gynecology
PROC: (CPT 58720; principal; 2025-03-21 07:30)
DX: Z30.2 Encounter for sterilization (principal)
CPT/HCPCS: 58661; 36415; 80053; 84703; 85025; 86850; 86900; 86901; A4649; J0131; J1100; J1885; J2250; J2405; J2704; J2795; J3010; J3490; A9270

== ENCOUNTER 2025-04-10 18:45 | Emergency (ER) | payer MEDICAID, SELFPAY ==
[2025-04-10 19:17] VITALS: BP 118/82; PULSE 122; RESP 20; TEMP 38.3; O2SAT 98; BMI 39.1
--- NOTE | 2025-04-10 19:32 | PD.EDURI ---
Upper Respiratory Inf. RME/HPI General Chief Complaint: Flu Like Symptoms Stated Complaint: BODYACHES, FATIGUE, COUGH Time Seen by Provider: 04/10/25 18:56 Arrival date/time: 04/10/25 18:45 This is a case of 25-year-old female with no medical history came in in the emergency room due to productive cough nasal congestion for 2 days due to persistent of the symptoms this patient decided to sought consult here in the emergency room patient stated that she will plan to do another ER and was treated with viral infection COVID flu was tested and it was negative Limitations: no limitations Related Data Previous Rx's ?Medication ?Instructions ?Recorded docusate sodium 100 mg capsule 100 mg PO QDAY 30 days #30 caps 03/21/25 (Stool Softener) albuterol sulfate 90 mcg/actuation 1 puff inhalation Q4H PRN 04/10/25 aerosol inhaler (Ventolin HFA) shortness of breath or wheezing #8.5 grams azithromycin 250 mg tablet 250 mg PO QDAY 6 days #6 tabs 04/10/25 prednisone 20 mg tablet 20 mg PO QDAY 5 days #5 tabs 04/10/25 promethazine-DM 6.25 mg-15 mg/5 mL 5 ml PO Q4H PRN cough #118 mL 04/10/25 oral syrup Allergies Allergy/AdvReac Type Severity Reaction Status Date / Time No Known Drug Allergies Allergy Unknown Verified 04/10/25 18:48 Review of Systems Review of Systems Systems Reviewed: All systems reviewed, normal except as documented Past Medical History Past Medical History NEUROLOGIC: Negative Neurological Disorders or Seizures CARDIAC: Negative Cardiac Disorders or Congestive Heart Failure RESPIRATORY: Positive Asthma; Negative Chronic Obstructive Pulmonary Disease (COPD) GASTROINTESTINAL: Positive Hepatitis (hepatitis C); Negative Gastrointestinal Disorders or Colorectal Cancer GENITOURINARY: Negative Genitourinary Disorders, Renal Disease or Prostate Cancer REPRODUCTIVE: Positive Previous Pregnancies; Negative Breast Cancer, Endometriosis, Pelvic Inflammatory Disease, Testicular Cancer or Uterine Prolapse MUSCULOSKELETAL: Negative Musculoskeletal Disorders or Bone Cancer ENDOCRINE: Negative Endocrine Disorders, Diabetes Mellitus Type 1 or Diabetes Mellitus Type 2 HEMATOLOGIC: Positive Blood Disorders and Anemia; Negative Sickle Cell Disease PSYCHO/SOCIAL: Positive Anxiety OTHER HISTORY: Positive Hospitalization and Blood Transfusions; Negative Autoimmune Disease, Down Syndrome, Developmental Delay, Shingles, Falls, Blood Transfusion Reaction, Anesthesia Reactions, Human Immunodeficiency Virus (HIV), Chicken Pox, Measles, Mumps, Rubella (Telugu Measles), Pertussis, Clostridium Difficile, Cancer, Breast Cancer, Cervical Cancer, Colorectal Cancer, Lung Cancer, Ovarian Cancer, Prostate Cancer or Testicular Cancer Family History FAMILY HISTORY: Negative Family Psychiatric Problems, Family Respiratory Disorders, Family Cardiac Disorders, Family Gastrointestinal Problems, Family Cancer, Family Surgery or Family Anesthesia Reaction Surgical History SURGICAL: Negative Section Social History SMOKING STATUS: Never smoker SECOND HAND EXPOSURE: No SUBSTANCE USE: does not use ED Exam General Limitations: Present no limitations General appearance: Present alert, in no apparent distress and other (Patient is awake alert oriented not in distress nontoxic looking well-hydrated well-nourished) Head Head exam: Present atraumatic, normocephalic and normal inspection Eye Eye exam: Present normal appearance, PERRL and EOMI ENT ENT exam: Present normal exam, normal oropharynx, mucous membranes moist and other (HEENT exam is normal and unremarkable) Neck Neck exam: Present normal inspection, full ROM, trachea midline and other (Negative for meningeal sign); Absent tenderness, meningismus, lymphadenopathy or thyromegaly Chest Chest inspection: Present normal inspection and symmetric chest wall rise; Absent tenderness Respiratory Respiratory exam: Present normal lung sounds bilaterally and wheezes (Wheezing both lower lung field no crackles no rales no retraction no stridor); Absent respiratory distress, stridor, accessory muscle use or prolonged expiratory phase Cardiovascular Cardiovascular exam: Present regular rate, normal rhythm, tachycardia and normal heart sounds; Absent bradycardia, irregular rhythm or diastolic murmur Abdominal Exam Abdominal exam: Present soft, normal bowel sounds, psoas sign and obturator sign; Absent distention, tenderness, guarding, rebound, rigidity, diminished bowel sounds, hyperactive bowel sounds, hypoactive bowel sounds or organomegaly Extremities Exam Extremities exam: Present normal inspection and full ROM Back Exam Back exam: Present normal inspection and full ROM Neurological Exam Neurological exam: Present alert, oriented X3, CN II-XII intact, normal gait and reflexes normal; Absent motor sensory deficit Psychiatric Psychiatric exam: Present normal affect and normal mood Skin Skin exam: Present warm, dry, intact, normal color and other (Excellent skin turgor) Course Quality Measures none Orders Category Date Time Status Albuterol/Ipratr Rt Mira [Duoneb Rt Mira] Med 04/10/25 19:29 Discontinued 3 ml INH X1 ONE Ibuprofen Tab [Motrin Tab] Med 04/10/25 19:32 Once 800 mg PO X1 ONE dexAMETHasone INJ [Decadron Inj] Med 04/10/25 19:29 Discontinued 10 mg IM X1 ONE Vital Signs Vital signs: Vital Signs Temperature 101.0 F H 04/10/25 19:17 Pulse Rate 122 H 04/10/25 19:17 Respiratory Rate 20 04/10/25 19:17 Blood Pressure 118/82 04/10/25 19:17 Pulse Oximetry (%) 98 04/10/25 19:17 Oxygen Delivery Method Room Air 04/10/25 19:17 Patient oxygenation saturation is 98% in room air no hypoxia patient after giving ibuprofen temperature went down to 99.5 and heart rate went down to 90 Upper Respiratory Infection MDM Narrative MDM Narrative:: This is a case of 25-year-old female with no medical history came in in the emergency room due to productive cough nasal congestion for 2 days due to persistent of the symptoms this patient decided to sought consult here in the emergency room patient stated that she will plan to do another ER and was treated with viral infection COVID flu was tested and it was negative physical examination patient is awake alert oriented not in distress nontoxic looking well-hydrated well-nourished patient is febrile at 101 tachycardic at 122 BP stable not tachypneic oxygen saturation is 98% in room air I do not think patient is having sepsis at this time patient refused for any imaging or any blood test she was only wanted to have antibiotic and some treatment for his productive cough patient wanted to go home after medication HEENT exam is normal lung sounds wheezing both lower lung field no crackles no rales no retraction no stridor heart normal rhythm tachycardic no murmur no pitting edema abdominal exam is normal neurological exam is also normal excellent skin turgor no signs and symptoms sepsis dehydration nor hypoxia patient was given breathing treatment here in the emergency room and dexamethasone after 30 minutes patient was reassessed patient condition markedly improved wheezing resolved patient temperature after giving ibuprofen noted to be 99.5 heart rate went down to 90 this patient can be discharged home with stable condition patient will follow-up with PCP in 2 days for reevaluation for any worsening symptoms or any emergent concern return precaution in the ER is advsied Patient was discharged with comfortable condition walking with stable gait. Patient verbalized no further complains explained diagnosis and answered patient question. Patient is comfortable with the proposed management plan including the need to follow up with his/her primary care physician and any specialist if applicable Discussed patient for any urgent condition or worsening sx, He/She needed to go to emergency room immediately or call 911. Patient acknowledge the responsibility to follow up as instructed and to monitor her/his symptoms. For any persistence of the symptoms for more than 3-5 days return precaution advised. Discussed the result of the test and was given printed discharge instruction Patient data External records reviewed:: [facility] previous records Clinical information provided by:: patient Social determinants that could affect healthcare access:: none Patient has the following chronic illnesses:: None How is presenting disease/condition affected by chronic disease/condition?: no chronic disease Evaluation data The following diagnostics were reviewed and interpreted by me:: other (specify) (Refused) Lab and/or radiology exams considered but not ordered:: Refused Interpretation Summary: unable Medications / Prescriptions Medications or Prescriptions considered but not ordered:: given Medication administrations:: Medication Administration History Albuterol/Ipratropium (Albuterol/Ipratropium (Duoneb) Rt Mira 3 Ml Nebu) 3 ml INH X1 ONE Stop: 04/10/25 19:30 Dexamethasone Sodium Phosphate (Dexamethasone Sod Phos Inj 10 Mg/Ml Vial) 10 mg IM X1 ONE Stop: 04/10/25 19:30 given Consultations Consultation(s) initiated? (list below): No Diagnosis Upper Respiratory Differential Diagnosis: upper respiratory infection, otitis media, sinusitis, viral infection, bronchitis, influenza and pharyngitis Most likely diagnosis given after review of the tests above:: Acute bronchitis Admission Indicated Admission indicated?: not indicated Explain why admission is indicated or not indicated:: Not indicated Admission Request Was there a request for admission?: No Admission Attestation Admission request attestation: Not indicated Disposition Plan Disposition Plan: Discharge Discharge Attestation Discharge Attestation: The patient and all family members were given an opportunity to ask questions and understood the discharge instructions. Discharge instructions specifically effects, indications for sooner follow up or return to the emergency department, and the expected course of current diagnosis. Patient condition: Stable Discharge Plan Plan Patient Disposition: HOME (Self Care) Patient condition on transfer: Stable Prescriptions/Referrals Prescriptions/Med Rec: New azithromycin 250 mg tablet 250 mg PO QDAY 6 Days Qty: 6 0RF Rx Instructions: start on day 2 of therapy promethazine-DM 6.25-15 mg/5 mL syrup 5 ml PO Q4H PRN (Reason: cough) Qty: 118 0RF prednisone 20 mg tablet 20 mg PO QDAY 5 Days Qty: 5 0RF albuterol sulfate [Ventolin HFA] 90 mcg/actuation HFA aerosol inhaler 1 puff inhalation Q4H PRN (Reason: shortness of breath or wheezing) Qty: 8.5 0RF Rx Instructions: Please give No Action docusate sodium [Stool Softener] 100 mg capsule 100 mg PO QDAY 30 Days Qty: 30 0RF Problem List Clinical Impression: Acute bronchitis Patient/Caregiver Discharge Instructions Education Materials: Acute Bronchitis Additional Instructions: Follow-up with your primary care physician in 2 days for reevaluation worsening symptoms or any emergent concern call 911 or go to the nearest emergency room take your medication as directed finish the course of antibiotic increase water intake keep hydrated Pedialyte Gatorade for hydration is advised Print Language: Divehi Stand Alone Forms: Kimberley Award Info., Patient Portal Info Letter PA/LANCE CREWMEMBER/MLRS SERGEANT Supervising Physician PA/CHARLIE Supervising Physician: dr [email or web address]
[2025-04-10 19:47] VITALS: TEMP 38.3
[2025-04-10] MEDS: IBUPROFEN TAB 400 MG TABLET 800 MG PO (19:47)
[2025-04-10] MEDS: ALBUTEROL/IPRATROPIUM (Duoneb) RT SOL 3 ML NEBU INH (19:57)
[2025-04-10 20:00] VITALS: PULSE 84; RESP 18; O2SAT 98
[2025-04-10 20:42] VITALS: PULSE 90; RESP 16; TEMP 36.9; O2SAT 99
== END 2025-04-10 20:43 | disposition home or self-care (01) ==
LOC: SERX 20:00
PROVIDERS: Emergency Provider Emergency Medicine
DX: J20.9 Acute bronchitis, unspecified (principal)
CPT/HCPCS: 94640; 96372; 99283; A9270; J1100